=== PATIENT | female | born 1945 | race Caucasian/White ===

== ENCOUNTER 2017-02-06 17:07 | Emergency (ER) | payer OTHER ==
[2017-02-06 18:39] VITALS: BP 151/62
--- NOTE | 2017-02-06 18:45 | UC ---
Respiratory Complaint HPI - HPI Summary HPI Summary: Pt presents with sinus congestion and dry cough. She tells me that the day after thanksgiving she developed sinus congestion and a fever. She treated herself conservatively with rest and sudafed and her symptoms seem to mildly improve. Over the last week she has developed a dry cough in addition to her continued sinus symptoms. She has no longer felt feverish. She denies chills, ST , SOB, chest pain, earache, abdominal pain, N/V/D/C - History of Current Complaint Chief Complaint: UCRespiratory Stated Complaint: COLD Time Seen by Provider: 02/06/17 18:44 Hx Obtained From: Patient ?: No Onset/Duration: Gradual Onset Timing: Constant Severity Initially: Moderate Severity Currently: Moderate Character: Cough: Nonproductive - Allergies/Home Medications Allergies/Adverse Reactions: Allergies Allergy/AdvReac Type Severity Reaction Status Date / Time Ciprofloxacin [From Cipro] Allergy Severe facial Verified 02/06/17 18:39 swelling Sulfamethoxazole Allergy Unknown See Comment Verified 02/06/17 18:39 w/Trimethoprim [From Bactrim] Levofloxacin [From Levaquin] Allergy Facial Verified 02/06/17 18:39 Redness/Flushing Penicillins Allergy Rash Verified 02/06/17 18:39 Home Medications: Home Medications [id number] [Nyquil Severe Cold/Flu 5-6.25-10-325 mg/15Ml] 1 liq PO PRN 02/06/17 [History] Pseudoephedrine TAB* [Sudafed TAB*] PRN 02/06/17 [History] PMH/Surg Hx/FS Hx/Imm Hx Previously Healthy: Yes - Surgical History Surgical History: Yes Surgery Procedure, Year, and Place: Complete Hysterectomy 2007; tonsils; elective Ab; reconstruction left ankle w/ plate and pins - Social History Occupation: Retired Lives: Alone Alcohol Use: Occasionally Substance Use Type: None Smoking Status (MU): Never Smoked Tobacco Have You Smoked in the Last Year: No Review of Systems Constitutional: Negative Skin: Negative Eyes: Negative ENT: Nasal Discharge, Sinus Congestion, Sinus Pain/Tenderness Respiratory: Cough Cardiovascular: Negative Gastrointestinal: Negative Neurological: Negative Psychological: Negative All Other Systems Reviewed And Are Negative: Yes Physical Exam Triage Information Reviewed: Yes Appearance: Well-Appearing, Well-Nourished Vital Signs: Initial Vital Signs Temp 96.6 F 02/06/17 18:35 Pulse 73 02/06/17 18:35 Resp 16 02/06/17 18:35 BP 151/62 02/06/17 18:35 Pulse Ox 99 02/06/17 18:35 Vital Signs Reviewed: Yes Eyes: Positive: Conjunctiva Clear. Negative: Conjunctiva Inflamed, Discharge ENT: Positive: Hearing grossly normal, Pharynx normal, Nasal congestion, Nasal drainage, TMs normal, Sinus tenderness, Uvula midline. Negative: Pharyngeal erythema, TM bulging, TM dull, TM red, Tonsillar swelling, Tonsillar exudate Neck: Positive: Supple, Nontender, No Lymphadenopathy Respiratory: Positive: Chest non-tender, Lungs clear, No respiratory distress, No accessory muscle use, Wheezing - Mild right > left lung Cardiovascular: Positive: RRR, No Murmur, Pulses Normal Neurological: Positive: Alert Psychological: Positive: Age Appropriate Behavior Skin: Negative: rashes UC Diagnostic Evaluation - Laboratory O2 Sat by Pulse Oximetry: 99 Respiratory Course/Dx - Course Course Of Treatment: Sinusitis - Azithromycin. Bronchitis - Albuterol inhaler - Differential Dx/Diagnosis Differential Diagnosis/HQI/PQRI: Bronchitis, Pulmonary Edema, Influenza, Lower Resp Infection, Sinusitis Provider Diagnoses: Sinusitis. Bronchitis Discharge - Discharge Plan Condition: Stable Disposition: HOME Prescriptions: Albuterol HFA INHALER* [Ventolin HFA Inhaler*] 2 puff INH Q6H PRN #1 mdi PRN Reason: Sob/Wheezing Azithromycin TAB* [Zithromax TAB (Z-RAUDEL) 250 mg #6 tabs] 2 tab PO .TODAY, THEN 1 DAILY #1 raudel Patient Education Materials: Sinusitis (ED), Acute Bronchitis (ED) Referrals: Desiree Calhoun MD [Primary Care Provider] - Additional Instructions: If you develop a fever, SOB, chest pain, new or worsening symptoms - please call your PCP or go to the ED. Your blood pressure was high at todays visit. Please see your primary provider within 4 weeks for recheck and re-evaluation. Please try taking plain Mucinex OTC twice a day in addition to your antibiotic and inhaler.
== END 2017-02-06 19:05 | disposition home or self-care (01) ==
LOC: UCEAST 17:07
DX: J32.9 Chronic sinusitis, unspecified (principal); J40 Bronchitis, not specified as acute or chronic
CPT/HCPCS: 99212; G0463

== ENCOUNTER → 2017-07-11 06:07 | Day surgery (SDC) | payer OTHER ==
--- NOTE | 2017-06-30 12:32 | HP ---
AMENDED REPORT NOW INCLUDES COSIGNER DESIGNATION - ESIGNED BEFORE ADJUSTMENT CC: Dr. Desiree Calhoun * PREOPERATIVE HISTORY AND PHYSICAL: DATE OF ADMISSION: DATE OF PREOPERATIVE HISTORY AND PHYSICAL EXAMINATION: 06/28/17 This patient is scheduled for same day surgery admission by Dr. Benito on 07/11/17. ATTENDING SURGEON: Dr. Osbaldo Benito * (dictated by Lavern Robin NP). CHIEF COMPLAINT: Umbilical hernia. HISTORY OF PRESENT ILLNESS: The patient is a 71-year-old female who first noted bulging in her umbilicus about 2 years ago[address] saw Dr[address] 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 She has had no associated pain, but she does note tenderness if she leans her belly against a countertop. She had a routine exam with Dr. Desiree Calhoun in October 2016 and at that time was referred to Dr. Benito. She denies any signs or symptoms to suggest incarceration or strangulation of the umbilical hernia. She denies any associated nausea, vomiting, or constipation. Dr. Benito examined the patient and noted a partially reducible umbilical hernia associated with mild tenderness. Dr. Benito has recommended open umbilical hernia repair with possible mesh as a same day surgery procedure and described the nature of the surgery, the rationale for the surgery, the relevant risks and benefits and today I reviewed the expected postoperative care and recovery. The patient has had a chance to ask questions and stated that she understands the information and is satisfied with the answers given to her questions. She will sign surgical consent on the day of surgery. PAST MEDICAL HISTORY: 1. Obesity. 2. Depression. 3. Skin cancer (basal and squamous). PAST SURGICAL HISTORY: 1. section in 1982. 2. Laparoscopic surgery for ectopic in 1982. 3. Hysterectomy in 2006. 4. Left ankle surgery in 2002 and she has a plate and [address] 5[address] Tonsillectomy in 1949. OB HISTORY: 2, para 1, 1. She is status post hysterectomy. MEDICATIONS: 1. Centrum Women's Multivitamin 1 tablet daily. 2. Biotin one tablet daily. 3. Caltrate 600 plus vitamin D 1 tablet b.i.d. 4. Zinc 1 tablet daily. 5. Krill oil 350 mg daily. 6. Vitamin D Super Strength 1 daily. ALLERGIES: 1. PENICILLIN causes rash. 2. LEVAQUIN caused facial swelling. 3. BACITRACIN causes rash and she has noticed with certain band-aids rash like irritation of the skin. FAMILY HISTORY: No known anesthesia complications, bleeding tendencies, or clotting disorders. 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 Her sister will accompany her on the day of surgery. She has never been a smoker. She drinks alcohol socially and denies use of other substances. REVIEW OF SYSTEMS: Constitutional: Normal. No fevers, chills, excessive fatigue. Endocrine: Normal. No diabetes or thyroid disease. Hematologic: Normal. No easy bruising or bleeding. Respiratory: Normal. No dyspnea on exertion or chronic cough. Cardiovascular: Normal. No anginal chest pain or palpitations. Gastrointestinal: As in history of present illness; no change in bowel habits. No GI bleeding. No heartburn. Genitourinary: Normal. No dysuria. Musculoskeletal: No back or joint pain. Integumentary: No chronic rashes or ulcerations of the skin. Neurologic: No headache or blurred vision or areas of focal weakness. General: No previous anesthesia complications. No history of deep vein thrombosis or pulmonary embolism. No previous blood transfusions. Psychiatric: History of depression. PHYSICAL EXAMINATION GENERAL SURVEY: The patient is a 71-year-old female overweight, well developed , in no acute distress. VITAL SIGNS: Height 64 inches, weight 214 pounds. Body mass index 36.7. Blood pressure 128/80, pulse 72 and regular, respiratory rate 18, temperature 98 tympanic. HEENT: Benign. NECK: Supple. No cervical lymphadenopathy. BACK: No CVA tenderness. LUNGS: Breath sounds bilaterally clear and equal. HEART: Regular rate and rhythm. No murmurs or rubs. ABDOMEN: Active bowel sounds. Obese, soft, nondistended. Obvious umbilical hernia bulge that is soft and partially reducible when she is supine. No overlying skin changes. No other obvious masses or organomegaly. EXTREMITIES: Warm without edema or skin ulceration. PELVIC: Deferred. RECTAL: Deferred. NEUROLOGIC: Alert and oriented x3. Steady gait. SKIN: Warm, dry, intact. IMPRESSION: Umbilical hernia. PLAN: Same day surgery admission to Dr. Benito' service on 07/11/17, for open umbilical hernia repair with possible mesh. AMBAR ROBIN, SHEEPSKIN PICKLER [id number]/[facility] #: [id number] [facility]ENTERPoppy
[~2017-07-11 06:07] MED LIST: Buffered Lidocaine 0.9% SYRIN* 5 ML/SYR SYRINGE INTRADERM ONE; Buffered Lidocaine 0.9% SYRIN* 5 ML/SYR SYRINGE ONE; Bupivacaine 0.25% SDV* 30 ML ONE; Clindamycin 900 MG IVPREMIX(* 900 MG/50 ML SDV IV ONE; Dexamethasone IV* 4 MG/ML 1 ML (4 MG) IV SLOW PU ONE; Dexamethasone IV* 4 MG/ML 1 ML (4 MG) ONE; Famotidine IV* 10 MG/ML 2 ML (20 mg) IV ONE; Famotidine IV* 10 MG/ML 2 ML (20 mg) ONE; HYDROcodone/ACETAMIN 5-325 MG* 1 TAB PO PRN; Ketorolac INJ* 30 MG/ML 1 ML VIAL IV PRN; Ketorolac INJ* 30 MG/ML 1 ML VIAL ONE; Lidocaine 1% MPF wEPI 200,000* 30 ML SDV ONE; Lidocaine 2% PF * 5 ML VIAL ONE; Midazolam* 1 MG/ML 5 ML VIAL (5 MG) ONE; Naloxone* 0.4 MG/ML 1 ML VIAL IV PRN; PROCHLORPERAZINE INJ 5 MG/ML 2 ML VIAL IV PRN; Propofol* 10 MG/ML 20 ML BTL IV PUSH ONE; fentaNYL* 50 MCG/ML 2 ML VIAL (100 MCG VIAL) IV PRN; fentaNYL* 50 MCG/ML 2 ML VIAL (100 MCG VIAL) ONE; oxyCODONE/Acetamin 5/325 MG* TAB PO PRN
--- NOTE | 2017-07-11 08:44 | BRIEFOPN ---
Brief Operative Note - Surgery Procedures: Preop Dx: Umbilical Hernia Postop Dx: Same Procedure: Open umbilical hernia repair with mesh Surgeon: Jigna Assist: DOUGLAS Greenfield Anesthesia: MAC IV Fluids: 900mc RL EBL: <5mL Drains: None Specimen: None Complications: None Findings: Dictated
[2017-07-11 09:45] VITALS: BP 139/66
--- NOTE | 2017-07-12 07:50 | OP ---
CC: Desiree Calhoun MD * DATE OF OPERATION: 07/11/17 - SDS DATE OF : 45 SURGEON: Dr. Benito TOLL TRANSMISSION WORKER: GELACIO Greenfield student ANESTHESIOLOGIST: Dr. Ware. ANESTHESIA: Local MAC. PRE-OP DIAGNOSIS: Umbilical hernia. POST-OP DIAGNOSIS: Umbilical hernia. OPERATIVE PROCEDURE: Open repair of umbilical hernia with mesh. ESTIMATED BLOOD LOSS: Minimal. IV FLUIDS: 900 mL crystalloids. SPECIMENS: None. DRAINS: None. COMPLICATIONS: None. COUNTS: The instrument, needle, and sponge counts were correct. DESCRIPTION OF PROCEDURE: The patient was brought to the operating room and placed on the table supine. Sequential compression devices were placed in both lower extremities. Intravenous sedation was administered. Her abdomen was prepped and draped in the usual sterile fashion. Time-out was performed. She received appropriate intravenous antibiotics. Local anesthetic was infiltrated as a field block periumbilically. A curvilinear infraumbilical incision was created and the incision was extended out laterally in each direction. The hernia sac was dissected free from the umbilicus and the hernia defect was dissected free circumferentially. The defect measured approximately 2.5 cm across. A plane was created in the preperitoneal space and blunt dissection was used to develop this circumferentially. The repair was then performed with the Bard circular mesh, placing the mesh in the preperitoneal space and then drawing the tabs up through the defect. The mesh was secured in 4 quadrants with 0 Ethibond suture and then the defect itself was closed with 0 Ethibond suture using interrupted [id number] as well as a simple interrupted suture. The umbilical stalk was then reapproximated to the anterior fascia with 3-0 Vicryl. The wound was closed in two layers with 3-0 Vicryl for the deep dermis and 4-0 Monocryl for the skin edges. Steri-Strips were applied with the compression dressing. The patient tolerated the procedure well and was awakened and transferred to the recovery room in stable condition. [id number]/[facility] #: [id number] [facility]ITALPoppy
== END | disposition home or self-care (01) ==
LOC: OR 06:07
PROVIDERS: ATTEND Surgery
DX: K42.9 Umbilical hernia without obstruction or gangrene (principal); E66.9 Obesity, unspecified; Z68.36 Body mass index [BMI] 36.0-36.9, adult; Z85.828 Personal history of other malignant neoplasm of skin; F32.9 Major depressive disorder, single episode, unspecified
CPT/HCPCS: C1781; J1100; J1885; J2001; J2250; J2704; J3010

== ENCOUNTER 2017-12-16 13:46 | Emergency (ER) | payer OTHER ==
[2017-12-16 14:51] VITALS: BP 155/77
--- NOTE | 2017-12-16 16:02 | UC ---
Lower Extremity/Ankle HPI - HPI Summary HPI Summary: 72-year-old female presents with left lateral foot pain. States she was walking on some uneven pavement yesterday afternoon causing an inversion injury to the left foot. She she was able to bear weight immediately after the injury and was ambulatory here in the clinic although with pain. Reports some bruising and swelling to the lateral aspect of her foot. She has been taken ibuprofen every 6 hours and applying ice to the affected area with good relief of the pain. She has had a previous injury with the placement of plates and screws to the left ankle as well as a previous fracture of the fifth metatarsal of the left foot. She denies any numbness or tingling in the extremity. - History of Current Complaint Chief Complaint: UCLowerExtremity Stated Complaint: FOOT INJURY Time Seen by Provider: 12/16/17 15:31 Hx Obtained From: Patient Onset/Duration: Sudden Onset Severity Initially: Moderate Severity Currently: Moderate Pain Intensity: 8 Aggravating Factor(s): Standing Alleviating Factor(s): Rest, Ice, OTC Meds - Allergies/Home Medications Allergies/Adverse Reactions: Allergies Allergy/AdvReac Type Severity Reaction Status Date / Time ciprofloxacin Allergy facial Verified 12/16/17 14:51 swelling levofloxacin Allergy Facial Verified 12/16/17 14:51 Redness/Flushing Penicillins Allergy Rash Verified 12/16/17 14:51 sulfamethoxazole Allergy skin Verified 12/16/17 14:51 [From Bactrim] irritation that became infected trimethoprim [From Bactrim] Allergy skin Verified 12/16/17 14:51 irritation that became infected Home Medications: Home Medications LoraTADine TAB(NF) [Claritin 10 MG TAB(NF)] 10 mg PO DAILY 12/16/17 [History Confirmed 12/16/17] Zinc 50 mg PO 12/16/17 [History] predniSONE TAB* [Deltasone 10 MG TAB*] 10 mg PO DAILY 12/16/17 [History Confirmed 12/16/17] PMH/Surg Hx/FS Hx/Imm Hx Previously Healthy: Yes - Denies significant PMH - Surgical History Surgical History: Yes Surgery Procedure, Year, and Place: Complete Hysterectomy 2007; tonsils; C- SECTION; 2002-reconstruction left ankle w/ plate and pins. UMBILICAL HERNIA 2017 - Family History Family History: Noncontributory - Social History Occupation: Employed Full-time Lives: With Family Alcohol Use: Occasionally Substance Use Type: None Smoking Status (MU): Never Smoked Tobacco Have You Smoked in the Last Year: No Review of Systems Skin: Bruising Motor: Negative Neurovascular: Negative Musculoskeletal: Other: - See HPi Neurological: Negative Is Patient Immunocompromised?: No All Other Systems Reviewed And Are Negative: Yes Physical Exam Triage Information Reviewed: Yes Appearance: Well-Appearing, No Pain Distress, Well-Nourished Vital Signs: Initial Vital Signs Temp 97.5 F 12/16/17 14:45 Pulse 90 12/16/17 14:45 Resp 18 12/16/17 14:45 BP 155/77 12/16/17 14:45 Pulse Ox 97 12/16/17 14:45 Vital Signs Reviewed: Yes Respiratory: Positive: No respiratory distress Cardiovascular: Positive: Pulses Normal, Brisk Capillary Refill Musculoskeletal: Positive: Strength Intact, ROM Intact, Other: - Tenderness to mid-shaft left 5th metatarsal Neurological: Positive: Alert, Other: - Sensation intact distally Skin: Positive: Other - Eccymosis to the lateral mid left foot Diagnostics - Radiology No standard instances Xray Interpretation: Positive (See Comments) Radiology Interpretation Completed By: ED Physician - Mildly displaced oblique fracture mid shaft left 5th metatarsal, Radiologist - Patient Name: CHRIS MATA Medical Record#: [id number] Ordering Physician: Dax Petersen NP Acct.#: [id number] : 1945 Age: 72 Sex: F Location: [facility] Exam Date: 12/16/171547 ADM Status: [facility] ER Order Information: FOOT LEFT 3+ VWS Accession Number: [id number] CPT: 78827 HISTORY: pain after injury COMPARISONS: November 20, 2013 VIEWS: 3 , Frontal, lateral, and oblique views of the left foot FINDINGS: BONE DENSITY: Normal. BONES: The patient is status post internal fixation of the distal fibula. There is an oblique fracture of the fifth metatarsal without displacement. JOINTS: There is mild osteoarthritis of the first MTP joint. ALIGNMENT: There is no dislocation. SOFT TISSUES: Unremarkable. OTHER FINDINGS: None. IMPRESSION: OBLIQUE NONDISPLACED FRACTURE OF THE FIFTH METATARSAL. Lower Extremity Course/Dx - Course Course Of Treatment: 72-year-old female presents with left foot pain after an inversion injury yesterday. She had tenderness and bruising over the lateral aspect of her left foot. X-ray showed a mildly displaced fracture midshaft of the fifth metatarsal. Patient has some balance issues at baseline and therefore there is some safety concern with putting her in a posterior splint and being nonweightbearing with crutches therefore I have put her in a cam boot with instructions to minimize weightbearing and ambulation until follow-up with orthopedic surgery. Also recommend ibuprofen for pain and RICE. She is to follow-up with orthopedic surgery in 3-5 days. Warning symptoms reviewed with the patient. She verbalizes understanding and agrees with plan of care. - Differential Dx/Diagnosis Provider Diagnoses: Mildly displaced oblique fracture of the 5th metatarsal left foot Discharge - Sign-Out/Discharge Documenting (check all that apply): Patient Departure All imaging exams completed and their final reports reviewed: Yes - Discharge Plan Condition: Stable Disposition: HOME Patient Education Materials: Foot Fracture in Adults (ED) Referrals: Desiree Calhoun MD [Primary Care Provider] - Frederic Doty MD [Medical Doctor] - Additional Instructions: The x-ray performed in the clinic today showed a fracture of the fifth metatarsal of your left foot. We will place you have a CAM boot to provide support for the fracture. You should try to avoid walking and bearing weight as much as possible until you have followed up with the orthopedic surgeon. Apply ice to the affected area for 15-20 minutes 4 times a day. Keep the foot elevated to help reduce any swelling. Continue to use ibuprofen (Advil, Motrin) according to directions as needed for pain. Follow-up with Dr. Doty, orthopedic surgery, in 3-5 days. You'll need to call Monday for an appointment. Your blood pressure was elevated in the clinic today. It is recommended that you follow up with your primary care provider within 4 weeks to have this rechecked. Seek immediate medical attention in the emergency room if you have any pain that is not managed with [id number] pain medication, you have increased swelling of the foot, develop any numbness or tingling in the foot or toes, or have any worsening of symptoms. - Billing Disposition and Condition Condition: STABLE Disposition: Home
--- NOTE | 2017-12-16 16:41 | RAD ---
HISTORY: pain after injury COMPARISONS: November 20, 2013 VIEWS: 3 , Frontal, lateral, and oblique views of the left foot FINDINGS: BONE DENSITY: Normal. BONES: The patient is status post internal fixation of the distal fibula. There is an oblique fracture of the fifth metatarsal without displacement. JOINTS: There is mild osteoarthritis of the first MTP joint. ALIGNMENT: There is no dislocation. SOFT TISSUES: Unremarkable. OTHER FINDINGS: None. IMPRESSION: OBLIQUE NONDISPLACED FRACTURE OF THE FIFTH METATARSAL.
== END 2017-12-16 16:30 | disposition home or self-care (01) ==
LOC: UCEAST 13:46
DX: S92.355A Nondisplaced fracture of fifth metatarsal bone, left foot, initial encounter for closed fracture (principal); X50.1XXA Overexertion from prolonged static or awkward postures, initial encounter; Y93.01 Activity, walking, marching and hiking; Y92.9 Unspecified place or not applicable; Z88.1 Allergy status to other antibiotic agents; Z88.0 Allergy status to penicillin; Z88.2 Allergy status to sulfonamides
CPT/HCPCS: 99213; G0463